=== PATIENT | male | born 1980 | race Caucasian/White ===

== ENCOUNTER 2016-03-26 04:21 | Emergency (ER) | payer OTHER ==
[2016-03-26 04:36] VITALS: BP 126/104; PULSE 108; TEMP 98.6; BMI 26.9
[2016-03-26] MEDS ORDERED: diazePAM 5 MG TABLET PO ONE (04:53)
[2016-03-26] MEDS ORDERED: IBUPROFEN 400 MG TABLET (FP) PO ONE ×2 (04:53→04:57)
[2016-03-26] MEDS ORDERED: diazePAM 5 MG TABLET ONE (04:57)
--- NOTE | 2016-03-26 04:59 | PDOC ---
*Physical Exam - Vital Signs Last Vital Signs Temp Pulse Resp BP Pulse Ox 98.6 F 108 H 14 126/104 99 03/26/16 04:35 03/26/16 04:35 03/26/16 04:35 03/26/16 04:35 03/26/16 04:35 Medical Decision Making - Medical Decision Making 03/26/16 04:59 agree with care from [facility] *DC/Admit/Observation/Transfer Diagnosis at time of Disposition: Back pain, Muscle spasm - Discharge Dispostion Disposition: HOME - Prescriptions Prescriptions: Ibuprofen [Motrin -] 600 mg PO Q6H PRN #30 tablet MDD 4 tabs PRN Reason: Back Pain Diazepam [Valium] 10 mg PO Q8H PRN #15 tablet MDD 3 tabs PRN Reason: Back Pain - Referrals Referrals: Garcia Starr MD [Primary Care Provider] - - Patient Instructions Printed Discharge Instructions: DI for Low Back Pain Additional Instructions: FOLLOW UP WITH YOUR PRIMARY CARE PROVIDER. CALL TO SCHEDULE APPOINTMENT. TAKE MEDICATIONS PRESCRIBED. WARM COMPRESS TO AFFECTED AREAS. RETURN IF SYMPTOMS WORSEN OR ANY CONCERNS FOR FURTHER EVALUATION. Print Language: SYRIAC - Post Discharge Activity Work/School Note: Back to Work
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
== END 2016-03-26 06:00 | disposition home or self-care (01) ==
LOC: JER 04:21
DX: M54.5 Low back pain (principal); M62.838 Other muscle spasm; Y35.91XA Legal intervention, means unspecified, law enforcement official injured, initial encounter; Y93.89 Activity, other specified; Y92.9 Unspecified place or not applicable; Y99.0 Civilian activity done for income or pay
CPT/HCPCS: 72100-TC; 99281-25

== ENCOUNTER 2018-04-25 02:24 | Emergency (ER) | payer OTHER ==
[2018-04-25 02:46] VITALS: BP 144/93; PULSE 89; TEMP 99.2; BMI 26.9
[2018-04-25] MEDS ORDERED: KETOROLAC TROMETHAMINE 30 MG/1 ML VIAL IM ONE (02:57)
[2018-04-25] MEDS ORDERED: LIDOCAINE 5% TOPICAL PATCH TP ONE (02:57)
--- NOTE | 2018-04-25 03:04 | PDOC ---
History of Present Illness - General Chief Complaint: Back Pain Stated Complaint: BACK INJURY/[employer] Time Seen by Provider: 04/25/18 02:50 History Source: Patient - History of Present Illness Initial Comments: 04/25/18 03:04 37-year-old [employer] male complaining of lower back pain bilaterally after using force to open a door while on duty. Denies midline pain, numbness or tingling to the lower extremity. History of lower back spinal surgery 201604/25/18 03:21 Past History - Past Medical History Allergies/Adverse Reactions: Allergies Allergy/AdvReac Type Severity Reaction Status Date / Time No Known Allergies Allergy Verified 04/25/18 02:46 Home Medications: Ambulatory Orders Diazepam [Valium] 10 mg PO Q8H PRN #15 tablet MDD 3 tabs 03/26/16 Ibuprofen [Motrin -] 600 mg PO Q6H PRN #30 tablet MDD 4 tabs 03/26/16 Gabapentin 300 mg PO QID #120 capsule 04/21/16 Nabumetone [Relafen -] 750 mg PO BID #60 tablet 04/21/16 Meloxicam [Mobic (Nf) -] 15 mg PO DAILY #30 tablet 05/19/16 Cyclobenzaprine HCl [Flexeril -] 10 mg PO BID PRN #10 tablet 04/25/18 Ibuprofen 600 mg PO QID PRN #20 tablet 04/25/18 - Immunization History Immunization Up to Date: Yes - Suicide/Smoking/Psychosocial Hx Smoking History: Current every day smoker Have you smoked in the past 12 months: Yes Number of Cigarettes Smoked Daily: 5 Information on smoking cessation initiated: No Hx Alcohol Use: Yes (Social) Drug/Substance Use Hx: No Trauma Specific PMHX - Complaint Specific PMHX Arthritis: No Back Injury: No Neck Injury: No Hx Sacro Iliac Joint Dysfunction: No Review of Systems - Review of Systems Able to Perform ROS?: Yes Is the patient limited Djib[place]ian proficient: No Constitutional: No: Symptoms Reported, See HPI, Chills, Diaphoresis, Fever, Loss of Appetite, Malaise, Night Sweats, Weakness, Weight Stable, Unintentional Wgt. Loss, Unexplained wgt Loss, Other Musculoskeletal: Yes: Back Pain. No: Symptoms Reported, See HPI, Gout, Joint Pain, Joint Swelling, Muscle Pain, Muscle Weakness, Neck Pain, Joint Stiffness, Other *Physical Exam - Vital Signs Last Vital Signs Temp Pulse Resp BP Pulse Ox 99.2 F 89 18 144/93 97 04/25/18 02:24 04/25/18 02:24 04/25/18 02:24 04/25/18 02:24 04/25/18 02:24 - Physical Exam General Appearance: Yes: Appropriately Dressed Gastrointestinal/Abdominal: positive: Normal Bowel Sounds, Soft. negative: Tender Musculoskeletal: positive: Normal Inspection, Other (b/l lower back tenderness no midline tenderness). negative: CVA Tenderness, Vertebral Tenderness Extremity: positive: Normal Capillary Refill, Normal Inspection, Normal Range of Motion Integumentary: positive: Normal Color, Dry, Warm Neurologic: positive: Fully Oriented, Alert, Normal Mood/Affect Moderate Sedation - Procedure Monitoring Vital Signs: Procedure Monitoring Vital Signs Temperature 99.2 F 04/25/18 02:24 Pulse Rate 89 04/25/18 02:24 Respiratory Rate 18 04/25/18 02:24 Blood Pressure 144/93 04/25/18 02:24 O2 Sat by Pulse Oximetry (%) 97 04/25/18 02:24 Progress Note - Progress Note Progress Note: back pain p: lidocaine patch toradol *DC/Admit/Observation/Transfer Diagnosis at time of Disposition: Muscle spasm Back pain Qualifiers: Back pain location: low back pain Chronicity: acute Back pain laterality: bilateral Sciatica presence: without sciatica Qualified Code(s): M54.5 - Low back pain - Discharge Dispostion Disposition: HOME Condition at time of disposition: Fair - Prescriptions Prescriptions: Cyclobenzaprine HCl [Flexeril -] 10 mg PO BID PRN #10 tablet PRN Reason: Muscle Spasms Ibuprofen 600 mg PO QID PRN #20 tablet PRN Reason: Back Pain - Referrals Referrals: Garcia Starr MD [Primary Care Provider] - - Patient Instructions Printed Discharge Instructions: Low Back Pain Additional Instructions: take ibuprofen every 6 hours as needed for pain take flexeril as prescribed as needed for muscle spasms. apply ice/ heat to the area follow up with your doctor as soon as possible. - Post Discharge Activity Forms/Work/School Notes: Back to Work
[2018-04-25] MEDS ORDERED: LIDOCAINE 5% TOPICAL PATCH ONE (03:06)
[2018-04-25] MEDS ORDERED: KETOROLAC TROMETHAMINE 30 MG/1 ML VIAL ONE (03:06)
[2018-04-25] MEDS ORDERED: LIDOCAINE PATCH REMOVAL MC SCH (22:00)
== END 2018-04-25 03:31 | disposition home or self-care (01) ==
LOC: JER 02:24
PROC: 3E0233Z Introduction of Anti-inflammatory into Muscle, Percutaneous Approach (ICD-10-PCS; principal; 2018-04-25)
DX: M62.830 Muscle spasm of back (principal); M54.5 Low back pain; X50.0XXA Overexertion from strenuous movement or load, initial encounter; Y93.89 Activity, other specified; Y92.89 Other specified places as the place of occurrence of the external cause; Y99.0 Civilian activity done for income or pay
CPT/HCPCS: 99281-25

== ENCOUNTER 2018-09-09 05:15 | Emergency (ER) | payer OTHER | END 2018-09-09 07:34 | disposition home or self-care (01) | LOC: JER 05:15 ==

== ENCOUNTER 2021-07-04 14:25 | Emergency (ER) | payer OTHER ==
[2021-07-04 14:35] VITALS: BP 148/92; PULSE 89; TEMP 97.8; BMI 26.2
== END 2021-07-04 15:00 | disposition home or self-care (01) ==
LOC: FER 14:25
DX: M25.561 Pain in right knee (principal); M25.562 Pain in left knee; Y35.91XA Legal intervention, means unspecified, law enforcement official injured, initial encounter
CPT/HCPCS: 99281-25

== ENCOUNTER 2022-02-27 14:35 | Emergency (ER) | payer OTHER ==
[2022-02-27 15:07] VITALS: BP 129/71; PULSE 89; RESP 20; TEMP 97.8
== END 2022-02-27 16:05 | disposition home or self-care (01) ==
LOC: FER 14:35
DX: M54.50 Low back pain, unspecified (principal)
CPT/HCPCS: 99283-25